=== PATIENT | female | born 1945 | race Caucasian/White ===

== ENCOUNTER 2019-01-22 01:27 | Inpatient (IN) | payer OTHER, MEDICAID ==
[~2019-01-22] VITALS: Ht 167.6 cm; Wt 61.2 kg
[~2019-01-22 01:27] MED LIST: CELEBREX; CELEBREX 200 M200 M1 PO; COLACE100 MG PO; EVISTA; HYDROCODON-ACE1 EA10 PO; LEVOTHYROXINE0.05 MG PO; LO-DOSE ASPIRIN81 M1 PO; MILK OF MA2400 MG/10 PO; NICOTINE TRANSD14 M1 TRANSDERM; NORCO 10-325 T1 EACH PO; NORCO 5-325 TA1 EACH PO; PEPCID20 MG PO; PROTONIX 20 MG20 M1 PO; SIMVASTATIN10 MG PO; SYNTHROID50 MCG PO; TYLENOL325 MG PO; VITAMIN D400 UNI1 PO; ZANAFLEX4 MG PO; ZANTAC 150MG T150 MG PO
[2019-01-22 01:55] VITALS: BP 160/64
[2019-01-22 02:28] LABS: URINE BILIRUBIN NEGATIVE (Negative); URINE BLOOD NEGATIVE (Negative); URINE CLARITY CLEAR; URINE COLOR YELLOW; URINE GLUCOSE-RANDOM* NEGATIVE (Negative); URINE KETONES 1+ (Negative); URINE LEUKOCYTES-REFLEX NEGATIVE (Negative); URINE NITRITE-REFLEX NEGATIVE (Negative); URINE PROTEIN (DIPSTICK) NEGATIVE (Negative); URINE SPECIFIC GRAVITY 1.015 (1.005-1.035); URINE UROBILINOGEN 0.2 E.U./dl (0.2-1.0)
[2019-01-22 02:31] LABS: ABSOLUTE NEUTROPHILS 10.4 thou/uL (1.4-8.2); BASOPHILS 0.7 % (0.0-2.0); EOSINOPHILS 3.4 % (0.0-3.0); HEMATOCRIT 34.4 % (37.0-47.0); HEMOGLOBIN 11.4 gm/dL (12.0-15.0); LYMPHOCYTES 5.1 % (24.0-44.0); MCH 30.8 pg (26.0-34.0); MCHC 33.2 g/dL (28.0-37.0); MCV 92.8 fL (80.0-100.0); PLATELET COUNT 289 thou/uL (150-400); POLYS 85.8 % (36.0-66.0); RBC 3.71 mil/uL (4.20-5.00); RDW 13.9 % (10.5-14.5); WBC 12.1 thou/uL (4.0-11.0)
[2019-01-22 02:34] LABS: ANION GAP 8 mmol/L (7-16); BUN 13 mg/dL (7-18); CALCIUM 9.4 mg/dL (8.5-10.1); CHLORIDE 103 mmol/L (98-107); CO2 30 mmol/L (21-32); CREATININE 1.1 mg/dL (0.6-1.0); GLUCOSE 150 mg/dL (74-106); POTASSIUM 3.7 mmol/L (3.5-5.1); SODIUM 141 mmol/L (136-145)
[2019-01-22 02:43] LABS: APTT 32.2 Seconds (24.5-32.8); PROTIME 9.9 Seconds (9.3-11.4)
[2019-01-22 02:45] LABS: ALBUMIN 3.6 g/dL (3.4-5.0); LIPASE 58 U/L (73-393); MAGNESIUM 1.9 mg/dL (1.8-2.4); SGOT 22 U/L (15-37); SGPT 23 U/L (30-65); TOTAL BILIRUBIN 0.3 mg/dL (<0.1-1.0); TOTAL PROTEIN 7.5 g/dL (6.4-8.2); TROPONIN-I <0.06 ng/mL (<0.06)
[2019-01-22 03:06] LABS: BE(vivo) 2.6 mmol/L (-2 to +3); HCO3 28.2 mmol/L (22.0-26.0); PCO2 47.8 mmHg (35.0-45.0); PO2 67.5 mmHg (80.0-100.0); pH 7.389 (7.360-7.450); sO2 93.1 % (92.0-98.0)
[2019-01-22] MEDS ORDERED: PLAVIX 75 MG TA75 M1 PO (04:21)
[2019-01-22] MEDS ORDERED: MIRALAX17 GM PO (04:22)
[2019-01-22] MEDS ORDERED: PROTONIX40 M1 PO (04:22)
[2019-01-22] MEDS ORDERED: ZANTAC 150MG T150 MG PO (04:22)
[2019-01-22] MEDS ORDERED: OXYCONTIN10 M1 PO (04:23)
[2019-01-22] MEDS ORDERED: ONDANSETRON HCL4 M2 PO (04:23)
[2019-01-22] MEDS ORDERED: SENNA8.6 MG PO (04:23)
[2019-01-22] MEDS ORDERED: BACLOFEN20 MG PO (04:25)
[2019-01-22] MEDS ORDERED: FOLIC ACID 1 MG1 MG PO (04:25)
[2019-01-22] MEDS ORDERED: COLACE100 MG PO (04:26)
[2019-01-22] MEDS ORDERED: VALIUM5 MG PO (04:26)
[2019-01-22] MEDS ORDERED: MELATONIN3 MG PO (04:26)
[2019-01-22] MEDS ORDERED: CYMBALTA60 MG PO (04:26)
[2019-01-22] MEDS ORDERED: BISACODYL SUPP10 MG RECTAL (04:27)
[2019-01-22] MEDS ORDERED: SYNTHROID50 MCG PO (04:27)
[2019-01-22] MEDS ORDERED: REMERON15 MG PO (04:27)
[2019-01-22] MEDS ORDERED: ZANAFLEX2 MG PO (04:27)
[2019-01-22] MEDS ORDERED: ALBUTEROL2.5 MG/31 INH (04:28)
[2019-01-22] MEDS ORDERED: NORCO 10-325 T1 EACH PO (04:28)
[2019-01-22] MEDS ORDERED: ROBITUSSIN100 MG/53 PO (04:29)
[2019-01-22] MEDS ORDERED: TYLENOL325 MG PO (04:29)
[2019-01-22] MEDS ORDERED: MECLIZINE HCL12.5 MG PO (04:30)
[2019-01-22] MEDS ORDERED: MUCINEX600 MG PO (04:30)
[2019-01-22] MEDS ORDERED: MAALOX ADVANCE355 ML PO (04:31)
[2019-01-22] MEDS ORDERED: MACROBID 100 M100 M2 PO (05:29)
[2019-01-22] MEDS ORDERED: OXYBUTYNIN 5 MG5 M2 PO (05:32)
[2019-01-22] MEDS ORDERED: CLARITIN10 MG PO (05:34)
[2019-01-22] MEDS ORDERED: EVISTA PO (05:34)
[2019-01-22 07:54] VITALS: BP 116/63
--- NOTE | 2019-01-22 08:43 | EKG ---
[place] [address] [facility] [email or web address] [address] ELECTROCARDIOGRAM REPORT Name: ROSALIA LAGUERRE Room #: 170-5 ADM IN M.R.#: [id number] ������������������ Admission: 01/22/19 ������������������ Attend Phys: Karthik Conklin MD Discharge: ������������������ Date of : 43 Report #: [id number] ����������������������������������������������������������������� [id number] THIS REPORT FOR: //name// [facility] ED Test Date: 2019-01-22 Test Time: 04:06:48 Pat Name: ROSALIA LAGUERRE Department: Room: 170 Gender: F [employer] Liv[employer] Farmer: KHURRAM GUTIERREZ : 1945 Requested By: Froilan Ferguson Order Number: [id number] MD: Michael Kirk Measurements Intervals [place] Rate: 105 P: 79 [place]: 166 QRS: 35 QRSD: 86 T: 54 QT: 357 QTc: 472 Interpretive Statements Sinus tachycardia Nonspecific ST segment abnormality Compared to ECG 03/28/2015 16:24:51 Heart rate has increased Electronically Signed On 01-22-2019 8:43:48 CDT by Michael Kirk [email or web address] ��������������������������������������������� <ELECTRONICALLY SIGNED> ���������������������������������������� By: Michael Kirk MD, [facility] ��������������������������������������������� 01/22/19 0843 5 5 Michael Kirk MD, [facility] /EPI
[2019-01-22 14:39] VITALS: BP 134/100
[2019-01-22 14:52] VITALS: BP 109/50
[2019-01-22 15:00] VITALS: BP 114/46
[2019-01-22 20:00] VITALS: BP 91/34
--- NOTE | 2019-01-22 20:09 | NUR ---
[age] YEAR OLD FEMALE ADMITTE TO ROOM 249 UNDER THE CARE OF DR. SEQUEIRA. PT WAS BROUGHT INTO THE ER PER MAST, FROM [facility] AFTER BEING FOUND COVERED IN EMESIS AND LOW 02 SATURATION. PT ALERT AND ORIENTED TIMES THREE WITH PERIODS OF CONFUSION. VSS, 97%2L, SR ON TELE. PT DENIES PAIN. PT TOLERATES MED AND MEALS. WILL CONTINUE TO MONITOR.
--- NOTE | 2019-01-23 03:12 | NUR ---
ASSESSMENT: PT REMAIN ALERT AND ORIENT TIMES TWO,. DOES KNOW HER NAME AND THAT SHE IS AT [facility]. DOES NOT KNOW WHY SHE IS HERE NOR WHAT THE DATE IS. PT IS PLEASANTLY CONFUSED. SB PER MONITOR WITH HR IN THE 44-55 RANGE. PT DOES GET IRRIATED WITH FREQUENT TURNS. PT IS INCONTINENT TO URINE. POSSIBLE EGD LATER THIS AM...NPO SINCE MN. NOTED THAT PT IS A NO CODE. LEFT SIDE WEAKNESS, DOES HAVE SENSATION IN LEFT ARM. TOLEARATING 2 LITERS PER NC WITH SATS 94%. DENIES PAIN, AND N/V. SLOW PROGRESS TOWARDS DC GOALS,. WILL CONTINUE TO MONITOR.
[2019-01-23 04:00] VITALS: BP 106/43
[2019-01-23 05:25] LABS: HEMATOCRIT 27.9 % (37.0-47.0); MCH 30.9 pg (26.0-34.0); MCHC 32.6 g/dL (28.0-37.0); MCV 94.6 fL (80.0-100.0); RBC 2.94 mil/uL (4.20-5.00); RDW 14.4 % (10.5-14.5); WBC 10.8 thou/uL (4.0-11.0)
[2019-01-23 05:29] LABS: CALCIUM 8.3 mg/dL (8.5-10.1); CREATININE 1.1 mg/dL (0.6-1.0); POTASSIUM 4.2 mmol/L (3.5-5.1)
[2019-01-23 05:33] LABS: HEMOGLOBIN 9.1 gm/dL (12.0-15.0)
[2019-01-23 10:32] VITALS: BP 121/97
--- NOTE | 2019-01-23 14:45 | NUR ---
ASSUMED CARE OF PT AT APPROX 0700. PT IS ALERT AND ORIENTED TO SELF AND PLACE. UNAWARE OF SITUATION. REORIENTED PT ON SITUATION AND PLAN FOR EGD TODAY. PT IS CURRENTLY REFUSING. EGD PROCEDURE, SPOKE WITH DPJANNETTE WHO DID OK PROCEDURE, DPOA PAPERWORK SENT OVER FROM FACILITY. GI UNSURE IF WILLING TO DO PROCEDURE WHILE PT IS REFUSING. PT TURNED FREQUENTLY TO MAINTAIN SKIN INTEGRITY. BED BATH GIVEN. ASSESSMENT CHARTED. ABLE TO MAINTAIN 02 SAT >90 ON 3L 02 NC. DENIES PAIN. WILL CONT. TO MONITOR.
--- NOTE | 2019-01-23 17:02 | NUR ---
PT ADMITTED RELATED TO NAUSEA/VOMITING. CM REVIEWED CHART AND SPOKE WITH CARE TEAM. CM MET WITH PT AT BEDSIDE THIS DAY. PT IS A&O X4. CM ROLE INTRODCUED. PT INDICATED SHE HAD BEEN LIVING OVER AT [facility]. PT INDICATED SHE HAD BEEN LIVING THERE ABOUT 4 YEARS. 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 CM CALLED AND SPOKE WITH PT'S BROTHER/DPOA BECK HE CONFIRMED THE ABOVE AND INDICATED THAT THEY ANTICIPATE PT RETURNING TO [facility] ONCE SHE'S MEDICALLY STABLE. PT WAS TO HABE AN EGD TODAY BUT SHE REFUSED, PT'S DPOA CONSENTED BUT PROCEDURE WASN'T COMPLETED. CM TO FOLLOW INDICATED WITH DC PLANNING.
[2019-01-23 18:00] VITALS: BP 116/75
[2019-01-23 19:30] VITALS: BP 126/55
[2019-01-23 21:01] VITALS: BP 119/46
[2019-01-23 23:09] VITALS: BP 135/48
[2019-01-24 04:17] VITALS: BP 142/39
[2019-01-24 05:12] LABS: CALCIUM 8.6 mg/dL (8.5-10.1); CREATININE 0.9 mg/dL (0.6-1.0); POTASSIUM 3.6 mmol/L (3.5-5.1)
[2019-01-24 05:16] LABS: HEMOGLOBIN 9.6 gm/dL (12.0-15.0); MCH 30.9 pg (26.0-34.0); MCHC 33.1 g/dL (28.0-37.0); MCV 93.2 fL (80.0-100.0); RBC 3.12 mil/uL (4.20-5.00); RDW 14.4 % (10.5-14.5); WBC 10.6 thou/uL (4.0-11.0)
--- NOTE | 2019-01-24 06:00 | NUR ---
Pt remains stable in this shift. Resting well tonight. Denies of any discomfort. No s/sx of any GI bleed indicates. Hb stable. Continue to observe her closely.
[2019-01-24 08:00] VITALS: BP 136/67
--- NOTE | 2019-01-24 14:24 | NUR ---
CARE TEAM INDICATED THAT PT WILL LIKELY BE MEDICALLY STABLE TO DISCHARGE BACK TO [facility] TOMORROW Sunday01/25/19. SAUD CALLED FACILITY AND SPOKE WITH MICHEAL IN ADMISSIONS. SHE INDICATED THEY ARE ABLE TO ACCEPT PT BACK AND THAT STAFF SHOULD CALL AND ASK FOR ADMISSIONS TO SET UP TRANSPORT BACK TO FACILITY TOMORROW. IF THERE SHOULD BE ANY ISSUE MICHEAL CAN BE REACHED AT . SAUD NOTIFIED PT'S BROTHER/DPOA OF POSSIBLE DC.
--- NOTE | 2019-01-24 16:51 | NUR ---
FAXED REFERRAL TO [facility] SPOKE WITH ADM. BRAY AND THEY RECEIVED REFERRAL AND THEY WILL BE LOOKING FOR DC O. RDERS WHEN DISCHARGED. IF PT DISCHARGED OVER WEEKEND FAX DC ORDERS TO [phone] AND CALL REPORT TO [phone]. THEY SHOULD PROVIDE TRANSPORTATION.
--- NOTE | 2019-01-24 18:00 | NUR ---
PATIENT ALERT AND ORIENTED AND PARTICIPATES IN CARE. PATIENT STARTED ON CHOPPED MECHANICAL SOFT DIET THIS AM AFTER SEEN BY SPEECH BEDSIDE SWALLOW EVALUATION. PATIENT BROTHER, BECKLOVE, CALLED INDICATING WOULD LIKE FOR PATIENT TO STAY IN THE HOSPITAL LONGER FOR FURTHER TESTING. HE ALSO INDICATED SHE DOESN'T GET GOOD CARE AT HER HOME FACILITY. PATIENT TRANSFERRED TO ROOM 212 AT END OF SHIFT AND REPORT GIVEN TO RACIEL.
[2019-01-24 18:18] VITALS: BP 149/64
--- NOTE | 2019-01-24 18:21 | NUR ---
PT ARRIVED TO THE UNIT AT APPROX 1800 BY ICU NURSING STAFF WITH ALL BELONGINGS. PT ALERT TO SELF, PLACE, AND SIUATION, FORGETFUL OF TIME. VSS, DENIES PAIN. O2 SATS WNL ON ROOM AIR. PT UNHAPPY WITH NECTAR THICK LIQUIDS AND REFUSES TO DRINK LIQUIDS UNLESS THEY ARE THIN. SMALL SIPS OF WATER TAKEN BY PT WHILE WATCHED BY NURSING STAFF, PT TOLERATES WELL, NO APPARENT CHOKING OR ASPIRATION NOTED. TELE PUT ON, NSR ON MONITOR. ADMIT STRIP PRINTED AND DOCUMENTED. PT DENIES CONCERNS AT THIS TIME. WILL CONTINUE TO MONITOR PT AND FOLLOW POC.
[2019-01-24 19:54] VITALS: BP 129/59
--- NOTE | 2019-01-25 04:04 | NUR ---
ASSESSMENT DOCUMENTED.PT BEEN RESTING IN NO ACUTE DISTRESS.A/OX3 WITH FORGETFULNESS.VSS.SR ON MONITOR.RA W/O RESP DISTRESS.NO GI BLEED NOTED.DENIES NAUSEA OR VOMITING.ON IV ANTIBIOTICS THERAPY,TOLERATING.INCONTINENT OF BLADDER.POC IS TO DISCHARGE BACK TO FACILITY TODAY.
[2019-01-25 05:00] VITALS: BP 130/60
[2019-01-25 07:34] VITALS: BP 153/77
[2019-01-25 12:01] VITALS: BP 139/67
[2019-01-25 16:34] VITALS: BP 149/68
--- NOTE | 2019-01-25 18:14 | NUR ---
ASSUMED CARE OF PT AT SHIFT CHANGE. ASSESSMENT CHARTED. MEDS GIVEN PER OCT. PT ALERT AND ORIENTED X3, FORGETFUL. VSS, O2 SATS WNL ON ROOM AIR, PT SOUNDING WHEEZY UPON LUNG ASSESSMENT, SCHEDULED BREATHING TX PER RT. PT UNABLE TO MOVE LEFT SIDE. INCONT OF BOWEL AND BLADDER, Q2 TURNS ENFORCED, BARRIER CREAM APPLIED PRN. PT C/O HURTING ALL OVER, MANAGED WITH PO PAIN MEDS. APPETITE INADEQUATE, ENCOURAGED TO EAT. GI VISITED WITH PT THIS SHIFT-- SEE NOTE. PT DENIES CONCERNS AT THIS TIME. WILL CONT TO MONITOR AND FOLLOW POC.
[2019-01-25 20:41] VITALS: BP 154/69
--- NOTE | 2019-01-26 04:08 | NUR ---
ASSUMED PT'S CARE AT 1900; PT. ON BED; AOX4; PT. C/O ABDOMEN PAIN; PRN PAIN MEDICATION GIVEN EARLIER; ST. DECREASE PAIN; DURING ASSESSMENT; C/O ABDOMINAL PAIN; ST. "I FEEL LIKE I NEED TO GO, BUT I CAN'T; OFFER PRN MEDICATION FOR CONSTIPATION; ST. "I DO NOT THINK IT WILL MAKE A DIFFERENCE"; ST. ABLE TO PASS GAS; THROUGH THE NIGHT ABLE TO REST FOR A FEW HOURS; INCONTINENT; CHANGED NEEDED; ASSESSMENT CHARGED; FOLLOWING POC; WILL KEEP MONITORING; WILL PASS ON REPORT.
[2019-01-26 05:58] VITALS: BP 131/69
[2019-01-26 07:24] VITALS: BP 175/78
[2019-01-26 08:35] LABS: ABSOLUTE NEUTROPHILS 6.4 thou/uL (1.4-8.2); BASOPHILS 0.6 % (0.0-2.0); EOSINOPHILS 0.5 % (0.0-3.0); HEMATOCRIT 29.8 % (37.0-47.0); HEMOGLOBIN 9.9 gm/dL (12.0-15.0); LYMPHOCYTES 27.4 % (24.0-44.0); MCHC 33.2 g/dL (28.0-37.0); MCV 93.5 fL (80.0-100.0); MONOCYTES 9.3 % (1.0-8.0); PLATELET COUNT 309 thou/uL (150-400); POLYS 62.2 % (36.0-66.0); RBC 3.19 mil/uL (4.20-5.00); RDW 14.5 % (10.5-14.5); WBC 10.2 thou/uL (4.0-11.0)
[2019-01-26 08:58] LABS: CALCIUM 9.1 mg/dL (8.5-10.1); CREATININE 1.1 mg/dL (0.6-1.0); POTASSIUM 3.8 mmol/L (3.5-5.1)
--- NOTE | 2019-01-26 10:12 | NUR ---
AAOX4. COOPERATIVE. NERVOUS. NOTICIBLE TREMORS AFFECTING MANUAL DEXTERITY. CONSTIPATION TREATED BUT PERSISTS. RESPIRATION AND HR ELEVATED BY ABD CRAMPING. FREQUENT CHECKS; WILL CONTINUE TO MONITOR.
[2019-01-26 11:14] VITALS: BP 111/47
[2019-01-26 15:21] VITALS: BP 141/53
--- NOTE | 2019-01-26 16:25 | NUR ---
ASSUMED CARE OF PT AT 13:45. ASSESSMENT CHARTED. MEDS GIVEN ORDERED. PLAN FOR EGD TOMORROW. WILL CONTINUE TO MONITOR UNTIL EOS.
[2019-01-26 19:25] VITALS: BP 137/63
[2019-01-27 03:59] LABS: HEMATOCRIT 30.9 % (37.0-47.0); HEMOGLOBIN 10.1 gm/dL (12.0-15.0); MCH 30.5 pg (26.0-34.0); MCHC 32.5 g/dL (28.0-37.0); MCV 93.9 fL (80.0-100.0); RBC 3.29 mil/uL (4.20-5.00); RDW 14.6 % (10.5-14.5)
[2019-01-27 04:01] LABS: CALCIUM 8.7 mg/dL (8.5-10.1); POTASSIUM 3.9 mmol/L (3.5-5.1)
[2019-01-27 04:29] VITALS: BP 125/48
--- NOTE | 2019-01-27 05:31 | NUR ---
ASSUMED PT'S CARE AT 1920; PT. ON BED; WATCHING TV; AOX4; DURING ASSESSMENT NO C/O ABDOMINAL; ST. LESS PAIN; LESS ABDOMINAL CRAMPS; EDUCATED ABOUT THE BENEFITS OF SCD's; ST. UNDERSTANDING; REFUSED; OFFER BED BAD LATER ON THE NIGHT; AGREED WITH IT; COMPLETE BED BAD GIVEN AT 2330; AGREED WITH SCDs; HAD 2 SMEAR BM; INCONTINENT; CHANGE NEEDED; NPO AFTER MIDNIGHT; TURNED FROM SIDE TO SIDE; NEW IV STARTED OVER R. FORE ARM; ASSESSMENT CHARGED; FOLLOWING POC; MONITORING; WILL PASS ON REPORT.
[2019-01-27 08:55] VITALS: BP 141/82
--- NOTE | 2019-01-27 09:30 | NUR ---
PT A&OX4. IV INTACT IN R FA. NPO SINCE MN FOR EGD TODAY. L SIDE WEAKNESS NOTED. INCONT. OF BLADDER. PT C/O ABD PAIN. WILL ASK FOR STRONGER LAXATIVE.
[2019-01-27 11:05] VITALS: BP 146/73
[2019-01-27] MEDS ORDERED: CEFUROXIME250 MG PO (12:29)
[2019-01-27] MEDS ORDERED: PREDNISONE 10 M10 MG PO (12:30)
--- NOTE | 2019-01-27 14:19 | NUR ---
PT DISCHARGING TODAY BACK TO [facility] FAXED DC ORDERS/SUMMARY TO FACILITY SPOKE WITH ZECHARIAH IN ADM SHE RECEIVED DC ORDERS AND ARRANGED TRANSPORTATION VIA [facility] FOR [id number]. FAMILY NOTIFIED (BROTHER) OF DC AND TIME OF TRANSPORT. UNIT NOTIFIED AND CHART COPY PER US. RN TO CALL REPORT TO [phone].
--- NOTE | 2019-01-27 15:55 | NUR ---
AT ID PATIENT REPORTS SHE WANTS A NEW FACILITY. SHE IS AGREEABLE TO RETURN TO HER FACILITY WITH [facility]. GAVE HER LIST OF NEW FACILITIES AND CONTACTED ADMISSIONS TO HAVE THEIR SW MEET WITH HER REGARDING NEW FACILITY.
--- NOTE | 2019-01-27 15:55 | NUR ---
DC ORDERS RECEIVED. IV REMOVED FROM R FA, REPORT CALLED TO [facility].
--- NOTE | 2019-01-29 17:06 | PATH ---
[facility] [address] [place] [address] PATHOLOGY RPT PROCEDURE Name: ROSALIA KEYES Room #: 212-P DIS IN M.R.#: [id number] ������������������ Admission: 01/22/19 ������������������ Date of : 43 Discharge: 01/28/19 Report #: [id number] Path Case #: [id number] [facility] Accession Number: [id number] . 01 Material submitted: . 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 Modifiers: mid . 01 Clinical history: . Pre-OP DX: Anemia, vomiting Post-OP DX: Suspected Kaylyn . 02 Diagnosis: Squamous mucosa, mid esophagus, endoscopic biopsy: - Mild acute esophagitis. 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 (IUV:misti; 01/28/2019) QMS/01/28/2019 . 02 Electronically signed: . Sofia Chavez MD, Pathologist NPI- [id number] . 01 Gross description: . Received in formalin labeled "Rosalia Keyes, BX mid esophagus, suspected Kaylyn," are 2 segments of hale soft tissue measuring 0.8 x 0.2 x 0.1 cm in aggregate dimensions and measuring 0.4 cm each in maximum dimension. The specimen is submitted entirely in cassette A1. (TSD; 01/27/2019) TOB/TOB . 02 Pathologist provided ICD-10: K20.9 . 02 CPT . 670279, [id number] Specimen Comment: A courtesy copy of this report has been sent to Specimen Comment: [phone], . Specimen Comment: Report sent to / DR SEQUEIRA Performed at: [address], [place] [id number] MD Nick Mccloud MD Phone: [phone] Performed at: [address] [id number] MD Sofia Chavez MD Phone: [phone]
== END 2019-01-28 09:46 | DRG 380 ==
LOC: ER 01:27 → ICU 05:11 → EROBS 05:11 → ICU 14:20 → 2N 01-24 18:16
PROVIDERS: Emergency Medicine; Nurse Practitioner Family; ADMIT Hospitalist
PROC: 0DB28ZX Excision of Middle Esophagus, Via Natural or Artificial Opening Endoscopic, Diagnostic (ICD-10-PCS; principal; 2019-01-27)
DX: K22.11 Ulcer of esophagus with bleeding (principal); J96.01 Acute respiratory failure with hypoxia; J96.02 Acute respiratory failure with hypercapnia; B37.81 Candidal esophagitis; J44.1 Chronic obstructive pulmonary disease with (acute) exacerbation; I69.354 Hemiplegia and hemiparesis following cerebral infarction affecting left non-dominant side; K21.9 Gastro-esophageal reflux disease without esophagitis; F32.9 Major depressive disorder, single episode, unspecified; M19.90 Unspecified osteoarthritis, unspecified site; M81.0 Age-related osteoporosis without current pathological fracture; E78.5 Hyperlipidemia, unspecified; E89.0 Postprocedural hypothyroidism; F17.210 Nicotine dependence, cigarettes, uncomplicated; G47.00 Insomnia, unspecified; K59.00 Constipation, unspecified; Z66 Do not resuscitate; N18.3 Chronic kidney disease, stage 3 (moderate); F03.90 Unspecified dementia, unspecified severity, without behavioral disturbance, psychotic disturbance, mood disturbance, and anxiety; Z53.29 Procedure and treatment not carried out because of patient's decision for other reasons; R13.11 Dysphagia, oral phase; D64.9 Anemia, unspecified; N32.81 Overactive bladder; K44.9 Diaphragmatic hernia without obstruction or gangrene; I69.398 Other sequelae of cerebral infarction; Z79.899 Other long term (current) drug therapy; Z88.8 Allergy status to other drugs, medicaments and biological substances; Z87.440 Personal history of urinary (tract) infections; Z79.02 Long term (current) use of antithrombotics/antiplatelets; Z86.010 Personal history of colon polyps
CPT/HCPCS: 10081; 10203; 62110; 62900; 70005